=== PATIENT | female | born 1950 | race Caucasian/White ===

== ENCOUNTER 2018-04-27 15:30 | Outpatient (RCR) | payer MEDICARE, OTHER | END 2018-05-02 08:12 | disposition home or self-care (01) | LOC: WSPT 15:30 | DX: M17.0 Bilateral primary osteoarthritis of knee (principal); M75.01 Adhesive capsulitis of right shoulder | CPT/HCPCS: G8978-GP; G8979-GP; G8980-GP ==

== ENCOUNTER 2018-09-14 09:30 | Outpatient (RCR) | payer MEDICARE, OTHER | END 2018-10-04 | disposition home or self-care (01) | LOC: WSPT | DX: M17.0 Bilateral primary osteoarthritis of knee (principal); M16.0 Bilateral primary osteoarthritis of hip | CPT/HCPCS: G8978-GP; G8979-GP ==

== ENCOUNTER 2018-12-28 15:00 | Outpatient (RCR) | payer MEDICARE, OTHER | END 2019-01-03 | disposition home or self-care (01) | LOC: WSPT | DX: M17.0 Bilateral primary osteoarthritis of knee (principal); M75.01 Adhesive capsulitis of right shoulder ==

== ENCOUNTER 2019-02-08 10:15 | Outpatient (RCR) | payer MEDICARE, OTHER | END 2019-04-11 | LOC: WSPT | DX: M25.561 Pain in right knee (principal); M25.562 Pain in left knee; M16.0 Bilateral primary osteoarthritis of hip ==

== ENCOUNTER → 2019-03-06 | Outpatient (CLI) | payer MEDICARE, OTHER | LOC: MC.RAD 11:29 | DX: Z12.31 Encounter for screening mammogram for malignant neoplasm of breast (principal) ==

== ENCOUNTER → 2019-03-08 | Outpatient (CLI) | payer MEDICARE, OTHER | LOC: MC.RAD 10:25 | DX: N63.41 Unspecified lump in right breast, subareolar (principal) ==

== ENCOUNTER → 2019-03-13 | Outpatient (CLI) | payer MEDICARE, OTHER | LOC: MC.RAD 06:54 | DX: N63.10 Unspecified lump in the right breast, unspecified quadrant (principal); Z98.82 Breast implant status ==

== ENCOUNTER 2020-01-15 10:00 | Outpatient (RCR) | payer MEDICARE, OTHER | END 2020-03-06 | disposition home or self-care (01) | LOC: WSPT | DX: M17.0 Bilateral primary osteoarthritis of knee (principal) ==

== ENCOUNTER → 2020-11-04 | Outpatient (RCR) | payer MEDICARE, OTHER | END | disposition home or self-care (01) | LOC: WSPT → WSC 09-19 11:15 → WSPT 09-23 13:00 → WSC 10-14 10:00 → WSPT 10-17 11:15 | DX: M17.0 Bilateral primary osteoarthritis of knee (principal); M19.011 Primary osteoarthritis, right shoulder ==

== ENCOUNTER → 2021-02-05 | Outpatient (RCR) | payer MEDICARE | END | disposition still patient (30) | LOC: WSC → WSPT 11-07 09:48 → WSC 11-28 11:00 → WSPT 12-02 11:00 → WSC 12-18 11:15 → WSPT 12-24 10:15 → WSC 01-29 11:15 | DX: M17.0 Bilateral primary osteoarthritis of knee (principal); M19.011 Primary osteoarthritis, right shoulder ==

== ENCOUNTER 2021-02-12 13:52 | Outpatient (RCR) | payer MEDICARE | END 2021-03-27 10:10 | disposition still patient (30) | LOC: WSC 13:52 | DX: M17.0 Bilateral primary osteoarthritis of knee (principal); M19.011 Primary osteoarthritis, right shoulder ==

== ENCOUNTER 2021-10-30 12:45 | Outpatient (RCR) | payer MEDICARE | END 2021-10-31 | disposition home or self-care (01) | LOC: WSPT | DX: M17.0 Bilateral primary osteoarthritis of knee (principal) ==

== ENCOUNTER → 2021-12-29 | Outpatient (RCR) | payer MEDICARE | END | disposition home or self-care (01) | LOC: WSPT → WSC 12-09 09:01 → WSPT 12-11 13:30 | DX: M17.0 Bilateral primary osteoarthritis of knee (principal); M19.019 Primary osteoarthritis, unspecified shoulder ==

== ENCOUNTER 2022-01-26 10:30 | Outpatient (RCR) | payer MEDICARE | END 2022-01-29 | disposition home or self-care (01) | LOC: WSC | DX: M17.0 Bilateral primary osteoarthritis of knee (principal); M19.011 Primary osteoarthritis, right shoulder ==

== ENCOUNTER 2022-02-23 10:30 | Outpatient (RCR) | payer MEDICARE | END 2022-02-28 | disposition home or self-care (01) | LOC: WSPT | DX: M17.0 Bilateral primary osteoarthritis of knee (principal); M19.011 Primary osteoarthritis, right shoulder; E11.69 Type 2 diabetes mellitus with other specified complication; I10 Essential (primary) hypertension; E78.5 Hyperlipidemia, unspecified; E66.01 Morbid (severe) obesity due to excess calories ==

== ENCOUNTER 2022-03-08 08:33 | Emergency (ER) | payer MEDICARE ==
[~2022-03-08] VITALS: Ht 149.9 cm; Wt 85.0 kg
[2022-03-08 08:37] VITALS: TEMP 97.8
[2022-03-08 10:36] VITALS: BP 162/89; PULSE 71
== END 2022-03-08 10:36 | disposition home or self-care (01) ==
LOC: COL.ER 08:33
DX: T18.190A Other foreign object in esophagus causing compression of trachea, initial encounter (principal)

== ENCOUNTER 2022-10-30 11:15 | Outpatient (RCR) | payer MEDICARE | END 2022-10-31 | disposition home or self-care (01) | LOC: WSPT | DX: M19.011 Primary osteoarthritis, right shoulder (principal); M19.012 Primary osteoarthritis, left shoulder ==

== ENCOUNTER 2023-01-27 10:30 | Outpatient (RCR) | payer MEDICARE | END 2023-01-29 | disposition home or self-care (01) | LOC: WSPT | DX: M19.011 Primary osteoarthritis, right shoulder (principal); M19.012 Primary osteoarthritis, left shoulder; M17.0 Bilateral primary osteoarthritis of knee ==

== ENCOUNTER 2023-02-24 10:30 | Outpatient (RCR) | payer MEDICARE | END 2023-02-28 | disposition home or self-care (01) | LOC: WSPT | DX: M19.011 Primary osteoarthritis, right shoulder (principal); M19.012 Primary osteoarthritis, left shoulder; M17.0 Bilateral primary osteoarthritis of knee ==

== ENCOUNTER 2023-09-29 11:15 | Outpatient (RCR) | payer MEDICARE | END 2023-09-30 | disposition home or self-care (01) | LOC: WSPT | DX: M19.011 Primary osteoarthritis, right shoulder (principal); M19.012 Primary osteoarthritis, left shoulder; M17.0 Bilateral primary osteoarthritis of knee; M22.2X1 Patellofemoral disorders, right knee ==

== ENCOUNTER 2023-10-27 11:15 | Outpatient (RCR) | payer MEDICARE | END 2023-10-31 | disposition home or self-care (01) | LOC: WSPT | DX: M17.0 Bilateral primary osteoarthritis of knee (principal); M19.012 Primary osteoarthritis, left shoulder; M19.011 Primary osteoarthritis, right shoulder; M22.2X1 Patellofemoral disorders, right knee ==

== ENCOUNTER → 2023-12-01 | Outpatient (RCR) | payer MEDICARE | END | disposition home or self-care (01) | LOC: WSPT → WSC 11-17 10:30 → WSPT 11-24 11:15 | DX: M17.0 Bilateral primary osteoarthritis of knee (principal); M19.012 Primary osteoarthritis, left shoulder; M19.011 Primary osteoarthritis, right shoulder; M22.2X1 Patellofemoral disorders, right knee ==

== ENCOUNTER 2023-12-27 11:15 | Outpatient (RCR) | payer MEDICARE | END 2023-12-30 | disposition home or self-care (01) | LOC: WSC | DX: M17.0 Bilateral primary osteoarthritis of knee (principal); M19.011 Primary osteoarthritis, right shoulder; M19.012 Primary osteoarthritis, left shoulder; M22.2X1 Patellofemoral disorders, right knee ==

== ENCOUNTER 2024-08-26 14:54 | Emergency (ER) | payer MEDICARE ==
[~2024-08-26] VITALS: Ht 149.9 cm; Wt 75.0 kg
[2024-08-26 15:01] VITALS: TEMP 97.4
[2024-08-26] MEDS ORDERED: ELIQUIS 5MG PO (18:14)
[2024-08-26] MEDS ORDERED: Apixaban 5 MG TABLET PO ONE (18:15)
[2024-08-26 18:50] VITALS: BP 156/80; PULSE 71
== END 2024-08-26 18:50 | disposition home or self-care (01) ==
LOC: COL.ER 14:54
DX: M79.662 Pain in left lower leg (principal); Z79.82 Long term (current) use of aspirin